=== PATIENT | female | born 1985 | race Caucasian/White ===

== ENCOUNTER 2023-06-21 08:42 | Emergency (ER) | payer OTHER, SELFPAY ==
[2023-06-21 08:44] VITALS: BP 132/95; PULSE 102; RESP 14; TEMP 36.8; O2SAT 98
--- NOTE | 2023-06-21 09:17 | ED.UPPEXIN ---
HPI - Extremity Injury (Upper) General Chief Complaint: Extremity Injury, Upper Stated Complaint: Arm and shoulder pain Time Seen by Provider: 06/21/23 09:06 Source: patient Mode of arrival: ambulatory Limitations: no limitations History of Present Illness HPI narrative: Patient is a 38 y/o female who presents to the ED with c/o RUE pain. Patient reports she was leaf blowing yesterday with a handheld and backpack blower for several hours. She developed pain in her right shoulder, right upper back, right upper arm and forearm afterwards. Pain persisted into today. She notes shakiness of her right arm. She tried taking ibuprofen last night without improvement. Did not take anything for pain today. Denies any numbness, weakness, chest pain, shortness of breath. Related Data Allergies Allergy/AdvReac Type Severity Reaction Status Date / Time No Known Allergies Allergy Verified 06/21/23 08:50 Review of Systems Review of Systems: CONSTITUTIONAL: Denies fever, chills, or sweats. CARDIOVASCULAR: Denies chest pain. RESPIRATORY: Denies dyspnea. MUSCULOSKELETAL: See HPI. NEUROLOGIC: Denies tingling, numbness, or weakness. All systems reviewed & are unremarkable except as noted in HPI and below Exam Narrative: GENERAL: Well appearing, obese with BMI of 37.5, non-toxic, in no acute distress. HEAD: Normocephalic, atraumatic. NECK: Supple. No adenopathy, no masses. RESPIRATORY: Airway patent, respirations nonlabored. Clear to auscultation bilaterally, no rales, rhonchi, wheezing. CARDIOVASCULAR: Regular rate and rhythm without murmurs, rubs, or gallops. Radial pulses 2+ and equal bilaterally. MUSCULOSKELETAL: Mild limited range of motion of right shoulder flexion and abduction due to pain. Tenderness palpation over right medial scapular region, in area of rhomboid muscle. Mild tenderness palpation over distal biceps, proximal forearm. No swelling noted to extremity. SKIN: Warm, dry, normal color. No rashes. NEURO: A&O X3. Speech clear. Cranial nerves II-XII grossly intact. Steady gait. No ataxic movements. Equal cream hauler strength bilaterally. Sensation intact. No focal deficits. PSYCHIATRIC: Appropriate mood and affect. Normal interaction. Course Vital Signs Vital signs: Vital Signs Temperature 98.2 F 06/21/23 08:44 Pulse Rate 102 H 06/21/23 08:44 Respiratory Rate 14 06/21/23 08:44 Blood Pressure 132/95 H 06/21/23 08:44 Pulse Oximetry 98 06/21/23 08:44 Oxygen Delivery Room Air 06/21/23 08:44 Temperature 98.2 F 06/21/23 08:44 Pulse Rate 102 H 06/21/23 08:44 Respiratory Rate 14 06/21/23 08:44 Blood Pressure 132/95 H 06/21/23 08:44 Pulse Oximetry 98 06/21/23 08:44 Oxygen Delivery Room Air 06/21/23 08:44 MDM - Extremity Injury (Upper) MDM Narrative Medical decision making narrative: Patient's injury is consistent with musculoskeletal etiology. No signs of neurologic or vascular compromise on physical examination. Compartments are soft without signs of compartment syndrome. No direct injury, no distinct bony tenderness, symptoms very much related to/began after aggravated activity. No indication for imaging at this time. Discussed likelihood of muscular strain, muscle fatigue. Recommended rest, ice, antiinflammatories. Patient is felt to be stable for discharge home and further outpatient management and treatment. Given return precautions. Discharged in stable condition. Medical Records Attestation: I reviewed the patient's medical records. Discharge Plan Discharge Clinical Impression: Muscle strain of right upper extremity Qualifiers: Encounter type: initial encounter Qualified Code(s): S46.911A - Strain of unspecified muscle, fascia and tendon at shoulder and upper arm level, right arm, initial encounter Patient Disposition: Home, Self-Care Condition: Stable Instructions: Antibiotic Form, Shoulder Sprain (ED), Musculoskeletal Pain (ED) Additional Instructio
[2023-06-21] MEDS: ACETAMINOPHEN 500 MG TABLET 1000 MG PO (09:27)
[2023-06-21] MEDS: KETOROLAC (*BKC) 60 MG/2 ML VIAL IM (09:29)
== END 2023-06-21 10:00 | disposition home or self-care (01) ==
LOC: ANHED 09:35
PROVIDERS: Emergency Provider Physician Assistant
DX: S46.911A Strain of unspecified muscle, fascia and tendon at shoulder and upper arm level, right arm, initial encounter (principal); X50.1XXA Overexertion from prolonged static or awkward postures, initial encounter; Y93.H2 Activity, gardening and landscaping
CPT/HCPCS: 96372; 99283; A9270; J1885